=== PATIENT | female | born 1945 | race Asian ===

== ENCOUNTER 2017-09-13 21:05 | Emergency (ER) | payer MEDICARE ==
[~2017-09-13] VITALS: Ht 152.4 cm; Wt 62.6 kg
[~2017-09-13 21:05] MED LIST: ASPIRIN EC81 MG PO; CRESTOR10 MG PO; GLIMEPIRIDE4 MG PO; METOPROLOL TART25 MG PO; PANTOPRAZOLE SO40 MG PO
[2017-09-13] MEDS ORDERED: CLONIDINE HCL 0.1 MG TAB PO ONE (21:45)
[2017-09-13 22:11] LABS: BASOPHILS # (AUTO) 0.1 (0.0-0.1); BASOPHILS % 0.6 % (0.0-1.0); EOSINOPHILS # (AUTO) 0.1 (0.0-0.4); EOSINOPHILS % 0.9 % (0.0-6.0); HEMATOCRIT 36.2 % (34.2-44.1); HEMOGLOBIN 12.4 g/dL (12.0-16.0); LYMPHOCYTES # (AUTO) 2.3 (1.0-3.2); MEAN CORPUSCULAR HGB CONC 34.3 g/dL (31-35); MEAN CORPUSCULAR VOLUME 84.6 fL (81-99); MONOCYTES # (AUTO) 0.6 (0.2-0.8); MONOCYTES % 5.8 % (4.4-11.3); NEUTROPHILS # (AUTO) 7.4 (2.1-6.9); NEUTROPHILS % 70.4 % (38.7-80.0); PLATELET COUNT 362 x10e3/uL (140-360); RED BLOOD COUNT 4.28 x10e6/uL (3.6-5.1); RED CELL DISTRIBUTION WIDTH 12.8 % (11.7-14.4)
[2017-09-13 22:19] LABS: INR 0.96
[2017-09-13 22:20] LABS: PARTIAL THROMBOPLASTIN TIME 30.5 seconds (23.8-35.5)
[2017-09-13 22:29] LABS: ALANINE AMINOTRANSFERASE 15 IU/L (0-55); ALBUMIN 4.7 g/dL (3.5-5.0); ALBUMIN/GLOBULIN RATIO 1.3 (0.8-2.0); ALKALINE PHOSPHATASE 62 IU/L (40-150); ANION GAP 15.1 mmol/L (8-16); BLOOD UREA NITROGEN 13 mg/dL (7-26); BUN/CREATININE RATIO 18 (6-25); CALCIUM 10.4 mg/dL (8.4-10.2); CARBON DIOXIDE 25 mmol/L (22-29); CHLORIDE 96 mmol/L (98-107); CREATININE, SERUM 0.72 mg/dL (0.57-1.11); EST GLOMERULAR FILTRATION RATE > 60 ML/MIN (60-); GLUCOSE 146 mg/dL (74-118); POTASSIUM 4.1 mmol/L (3.5-5.1); SODIUM 132 mmol/L (136-145)
--- NOTE | 2017-09-13 23:01 | Diagnostic Imaging Report ---
EXAMINATION: Head CT without contrast HISTORY: Severe right-sided headache, nausea COMPARISON: None. TECHNIQUE: Multidetector axial images were obtained without contrast from the foramen magnum to the vertex . The images were reconstructed using brain and bone algorithms. Thin section brain images were reformatted into coronal and sagittal planes. Image quality: Motion/streaking artifact limits the evaluation of the skull base and posterior cranial fossa. FINDINGS: Parenchyma: 1. Few scatter and periventricular white matter hypodensities, most likely nonspecific chronic microvascular ischemic changes. 2. Age indeterminate lacunar infarct in the left putamen. 3. No mass or hemorrhage. No CT evidence of acute territorial vascular insult. Extra-axial spaces:No abnormal density. No extra-axial fluid collections Brain volume: Normal for age. Ventricles: No hydrocephalus or displacement. Arteries: No density suggestive of thrombus. Dural sinuses: No abnormal density. Extra-axial spaces: No abnormal density. Foramen magnum: No mass, Chiari malformation, or basilar invagination. Sella: No obvious mass. Paranasal/mastoid sinuses: Imaged portions unremarkable. Skull/Scalp: No lytic or blastic lesions. No fractures. IMPRESSION: 1. No intracranial mass, hemorrhage or cortical infarct. 2. Mild chronic microvascular ischemic changes. 3. Small likely chronic lacunar infarct in left putamen. Signed by: Dr. Germania Gómez M.D. on 09/13/2017 10:57 PM
--- NOTE | 2017-09-13 23:39 | Diagnostic Imaging Report ---
CHEST SINGLE (PORTABLE), 09/13/2017 9:33 PM Technique: CHEST SINGLE (PORTABLE) Comparison: 06/27/2009 Clinical history: Hypertension Findings: Normal cardiomediastinal silhouette status post interval median sternotomy. No consolidation or edema. No pleural effusion or pneumothorax. Impression: 1. Lines/Tubes: None 2. No acute abnormality. Signed by: Dr Stefanie Vann MD on 09/13/2017 11:36 PM
[2017-09-13 23:48] LABS: CREATINE KINASE 99 IU/L (29-168)
[2017-09-13 23:58] LABS: CLARITY,URINE CLEAR (CLEAR); COLOR,URINE YELLOW (YELLOW); LEUKOCYTE ESTERASE ,URINE NEGATIVE (NEGATIVE); NITRITE,URINE NEGATIVE (NEGATIVE); PROTEIN,URINE DIPSTICK TRACE (NEGATIVE)
[2017-09-13 23:59] LABS: BILIRUBIN,URINE NEGATIVE (NEGATIVE); KETONES,URINE 2+ (NEGATIVE); URINE UROBILINOGEN 0.2 mg/dL (0.2 - 1)
[2017-09-14] LABS: BACTERIA,URINE RARE /HPF; EPITHELIAL CELLS,URINE RARE /LPF; RBC,URINE 0-5 /HPF (0-5)
[2017-09-14] MEDS ORDERED: SODIUM CHLORIDE 0.9% 1000ML 1,000 ML IV STA (00:04)
[2017-09-14] MEDS ORDERED: KETOROLAC TROMETHAMINE 30 MG/ML VIAL IV STA (00:04)
[2017-09-14 00:48] VITALS: BP 169/72
== END 2017-09-14 01:04 | disposition home or self-care (01) ==
LOC: ER 21:05
DX: R51 Headache (principal); I10 Essential (primary) hypertension
CPT/HCPCS: 36415; 70450; 71045; 80053; 81001; 82550; 82553; 83735; 84484; 85025; 85610; 85730; 87086; 93005; 99284; J1885; J7030

== ENCOUNTER 2017-09-15 12:38 | Emergency (ER) | payer MEDICARE ==
[~2017-09-15] VITALS: Ht 152.4 cm; Wt 62.6 kg
[2017-09-15] MEDS ORDERED: CLONIDINE HCL 0.1 MG TAB PO ONE (15:30)
[2017-09-15] MEDS ORDERED: KETOROLAC TROMETHAMINE 60 MG/2 ML VIAL IM ONE (15:30)
[2017-09-15 17:16] VITALS: BP 136/76
== END 2017-09-15 17:21 | disposition home or self-care (01) ==
LOC: ER 12:38
DX: R51 Headache (principal); I10 Essential (primary) hypertension
CPT/HCPCS: 99283